=== PATIENT | female | born 1985 | race Caucasian/White ===

== ENCOUNTER 2025-09-09 20:50 | Emergency (ER) | payer OTHER ==
[~2025-09-09] VITALS: Ht 157.5 cm; Wt 63.5 kg
[2025-09-09 21:06] VITALS: BP 117/55
[2025-09-09 21:51] LABS: PLATELET COUNT (AUTO) 287 K/uL (179-408); RED BLOOD CELL COUNT(AUTO) 4.42 MIL/uL (3.63-4.92); RED CELL DISTRIBUTION WIDTH 13.5 % (12.3-17.7); WHITE BLOOD COUNT (AUTO) 7.6 K/uL (3.8-11.8)
[2025-09-09 22:51] VITALS: BP 117/55; O2SAT 97
== END 2025-09-09 22:52 | disposition home or self-care (01) ==
LOC: ER 21:09
DX: O46.90 Antepartum hemorrhage, unspecified, unspecified trimester (principal); R10.20 Pelvic and perineal pain unspecified side; Z3A.00 Weeks of gestation of pregnancy not specified
CPT/HCPCS: 36415; 76856; 85025; 85610; A4606; A4663